=== PATIENT | female | born 1945 | race Caucasian/White ===

== ENCOUNTER 2019-04-05 17:22 | Emergency (ER) | payer MEDICARE, BC ==
[2019-04-05] MEDS ORDERED: Sodium Chloride 0.9% 10 ML Syringe FLUSH PRN (18:03)
--- NOTE | 2019-04-05 19:39 | EDM.PDOC ---
ED HPI GENERAL MEDICAL PROBLEM - General Chief Complaint: Syncope Stated Complaint: DIZZINESS Time Seen by Provider: 04/05/19 18:25 Source of Information: Reports: Patient History Limitations: Reports: No Limitations - History of Present Illness INITIAL COMMENTS - FREE TEXT/NARRATIVE: Patient presented to the ED because of recurrent near syncopal episode since yesterday with associated chest tightness. She also c/o chest tightness,denies any dyspnea,N/V or diaphoresis except for a mild headache. She has a h/o Afib/A flutter which was cardioverted by Dr Sánchez several years ago. - Related Data Allergies Allergy/AdvReac Type Severity Reaction Status Date / Time amoxicillin Allergy Burning Verified 04/05/19 19:20 Home Meds: Home Meds Apixaban [Eliquis] 5 mg PO BID 04/05/19 [History] Citalopram [Citalopram HBr] 40 mg PO DAILY 04/05/19 [History] Furosemide 60 mg PO DAILY 04/05/19 [History] Losartan [Cozaar] 125 mg PO DAILY 04/05/19 [History] Metoprolol Succinate [Toprol Xl] 100 mg PO DAILY 04/05/19 [History] Simvastatin 10 mg PO DAILY 04/05/19 [History] Past Medical History Cardiovascular History: Reports: Afib, Other (See Below) (AFLUTTER) ED ROS GENERAL - Review of Systems Review Of Systems: See Below Constitutional: Reports: No Symptoms HEENT: Reports: No Symptoms Respiratory: Reports: No Symptoms Cardiovascular: Reports: Chest Pain Endocrine: Reports: No Symptoms GI/Abdominal: Reports: No Symptoms : Reports: No Symptoms Musculoskeletal: Reports: No Symptoms Skin: Reports: No Symptoms Neurological: Reports: No Symptoms Psychiatric: Reports: No Symptoms Hematologic/Lymphatic: Reports: No Symptoms ED EXAM, GENERAL - Physical Exam Exam: See Below Exam Limited By: No Limitations General Appearance: Alert, No Apparent Distress Ears: Normal External Exam, Normal Canal, Hearing Grossly Normal Nose: Normal Inspection, Normal Mucosa Throat/Mouth: Normal Inspection, Normal Lips, Normal Oropharynx Head: Atraumatic, Normocephalic Neck: Normal Inspection, Non-Tender Respiratory/Chest: No Respiratory Distress, Lungs Clear, Normal Breath Sounds, No Accessory Muscle Use, Chest Non-Tender Cardiovascular: Normal Peripheral Pulses, No JVD, Bradycardia, Tachycardia, Irregularly Irregular GI/Abdominal: Normal Bowel Sounds, Soft, Non-Tender Back Exam: Normal Inspection, Full Range of Motion Extremities: Normal Inspection, Normal Range of Motion Neurological: Alert, Oriented, CN II-XII Intact Psychiatric: Normal Affect Course - Vital Signs Text/Narrative:: Labs/EKG/CXR was discussed with patient and her spouse and verbalized full understanding Will transfer to [place], she might need a pacemaker Last Recorded V/S: Last Vital Signs Temp 36.8 C 04/05/19 17:22 Pulse 29 L 04/05/19 17:22 Resp 16 04/05/19 17:22 BP 135/82 04/05/19 17:22 Pulse Ox 97 04/05/19 17:22 - Orders/Labs/Meds Orders: Active Orders 24 hr Category Date Time Status Chest 1V Frontal [CR] Stat Exams 04/05/19 18:03 Ordered Head wo Cont [CT] Stat Exams 04/05/19 18:04 Ordered Sodium Chloride 0.9% [Saline Flush] Med 04/05/19 18:03 Active 10 ml FLUSH ASDIRECTED PRN Saline Lock Insert [OM.PC] Routine Oth 04/05/19 18:03 Ordered Medication Orders Sodium Chloride (Saline Flush) 10 ml FLUSH ASDIRECTED PRN PRN Reason: Keep Vein Open Labs: Laboratory Tests 04/05/19 04/05/19 04/05/19 Range/Units 18:26 18:26 18:26 WBC 6.5 (4.5-12.0) X10-3/uL RBC 4.48 (3.23-5.20) x10(6)uL Hgb 13.5 (11.5-15.5) g/dL Hct 40.8 (30.0-51.3) % MCV 91.1 (80-96) fL MCH 30.2 (27.7-33.6) pg MCHC 33.1 (32.2-35.4) g/dL RDW 12.4 (11.5-15.5) % Plt Count 234 (125-369) X10(3)uL MPV 10.1 (7.4-10.4) fL Neut % (Auto) 61.4 (46-82) % Lymph % (Auto) 25.4 (13-37) % [place] % (Auto) 10.8 (4-12) % Eos % (Auto) 2 (1.0-5.0) % Baso % (Auto) 0 (0-2) % Neut # (Auto) 4.0 (1.6-8.3) # Lymph # (Auto) 1.7 (0.6-5.0) # [place] # (Auto) 0.7 (0.0-1.3) # Eos # (Auto) 0.1 (0.0-0.8) # Baso # (Auto) 0.0 (0.0-0.2) # Sodium 147 H (135-145) mmol/L Potassium 4.6 (3.5-5.3) mmol/L Chloride 106 (100-110) mmol/L Carbon Dioxide 29 (21-32) mmol/L BUN 43 H (7-18) mg/dL Creatinine 1.1 H (0.55-1.02) mg/dL Est Cr Clr Drug Dosing TNP Estimated GFR (MDRD) 49 L (>60) BUN/Creatinine Ratio 39.1 H (9-20) Glucose 106 (80-116) mg/dL Calcium 9.0 (8.6-10.2) mg/dL Magnesium 2.2 (1.8-2.5) mg/dL Total Bilirubin 1.3 (0.1-1.3) mg/dL AST 18 (5-25) IU/L ALT 21 (12-36) U/L Alkaline Phosphatase 70 (56-112) IU/L Troponin I < 0.017 L (<0.017-0.056) ng/mL Total Protein 7.5 (6.0-8.0) g/dL Albumin 3.7 (3.2-4.6) g/dL Globulin 3.8 g/dL Albumin/Globulin Ratio 1.0 Meds: Medications Generic Name Dose Route Start Last Admin Trade Name Freq PRN Reason Stop Dose Admin Sodium Chloride 10 ml 04/05/19 18:03 Saline Flush FLUSH ASDIRECTED PRN Keep Vein Open Departure - Departure Time of Disposition: 19:50 Disposition: DC/Tfer to Acute Hospital 02 Reason for Transfer *Q: Other (Higher Level of care-cardiology) Condition: Good Clinical Impression: Kelvin-tachy syndrome, 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 Referrals: Yvan Shrestha MD [Primary Care Provider] - Forms: ED Department Discharge Sepsis Event Note - Focused Exam Vital Signs: Vital Signs Temp Pulse Resp BP Pulse Ox 04/05/19 17:22 36.8 C 29 L 16 135/82 97 Date Exam was Performed: 04/05/19 Time Exam was Performed: 19:40 - My Orders Last 24 Hours: My Active Orders 04/05/19 18:03 Chest 1V Frontal [CR] Stat Sodium Chloride 0.9% [Saline Flush] 10 ml FLUSH ASDIRECTED PRN Saline Lock Insert [OM.PC] Routine 04/05/19 18:04 Head wo Cont [CT] Stat - Assessment/Plan Last 24 Hours: My Active Orders 04/05/19 18:03 Chest 1V Frontal [CR] Stat Sodium Chloride 0.9% [Saline Flush] 10 ml FLUSH ASDIRECTED PRN Saline Lock Insert [OM.PC] Routine 04/05/19 18:04 Head wo Cont [CT] Stat
== END 2019-04-05 20:05 ==
LOC: FB.ED 17:22
DX: R55 Syncope and collapse (principal); I49.5 Sick sinus syndrome; I48.91 Unspecified atrial fibrillation; Z88.1 Allergy status to other antibiotic agents; Z79.01 Long term (current) use of anticoagulants; Z79.899 Other long term (current) drug therapy
CPT/HCPCS: 36415; 70450; 71045; 80053; 83735; 84484; 85025; 93005; 99285; 99285-25

== ENCOUNTER 2021-05-13 08:10 | Day surgery (SDC) | payer MEDICARE, BC ==
[2021-05-13] MEDS ORDERED: Glycopyrrolate 0.2 MG/ML 5 ML MDV IV ONE (08:11)
[2021-05-13] MEDS ORDERED: Midazolam 1 MG/ML 2 ML SDV IV ONE (08:11)
[2021-05-13] MEDS ORDERED: Propofol 200 MG/20 ML SDV IV ONE (08:11)
[2021-05-13] MEDS ORDERED: Lactated Ringers 1,000 ML IV SCH (08:15)
[2021-05-13] MEDS ORDERED: Sodium Chloride 0.9% 10 ML Syringe FLUSH PRN (08:15)
== END 2021-05-13 12:14 | disposition home or self-care (01) ==
LOC: FB.SDS 08:10
PROVIDERS: ATTEND Surgery
DX: D12.0 Benign neoplasm of cecum (principal); D12.2 Benign neoplasm of ascending colon; D12.8 Benign neoplasm of rectum; E66.01 Morbid (severe) obesity due to excess calories; K57.30 Diverticulosis of large intestine without perforation or abscess without bleeding; K58.9 Irritable bowel syndrome, unspecified; D64.9 Anemia, unspecified; G47.33 Obstructive sleep apnea (adult) (pediatric); I50.22 Chronic systolic (congestive) heart failure; I11.0 Hypertensive heart disease with heart failure; Z98.890 Other specified postprocedural states; Z79.899 Other long term (current) drug therapy; Z88.1 Allergy status to other antibiotic agents; Z90.49 Acquired absence of other specified parts of digestive tract; Z68.42 Body mass index [BMI] 45.0-49.9, adult
CPT/HCPCS: 00812-QZ; 82947; 88305; J2250; J2704; J3490; J7120

== ENCOUNTER 2022-01-25 15:51 | Emergency (ER) | payer MEDICARE, BC ==
[2022-01-25] MEDS ORDERED: Albuterol/Ipratropium 3.0-0.5 MG/3 ML Neb Soln INH ONE (15:52)
[2022-01-25] MEDS ORDERED: Albuterol 0.083% 2.5 MG/3 ML Neb Soln NEB ONE (16:22)
[2022-01-25] MEDS ORDERED: Ipratropium 0.02% 0.5 MG/2.5 ML Neb Soln NEB ONE (16:52)
[2022-01-25] MEDS ORDERED: predniSONE 20 MG Tab PO ONE (17:31)
== END 2022-01-25 17:50 | disposition home or self-care (01) ==
LOC: FB.ED 15:51
DX: J98.01 Acute bronchospasm (principal); I48.91 Unspecified atrial fibrillation; I11.0 Hypertensive heart disease with heart failure; I50.9 Heart failure, unspecified; E78.00 Pure hypercholesterolemia, unspecified; E66.9 Obesity, unspecified; Z68.42 Body mass index [BMI] 45.0-49.9, adult; Z88.0 Allergy status to penicillin; Z79.01 Long term (current) use of anticoagulants; Z79.899 Other long term (current) drug therapy; Z79.84 Long term (current) use of oral hypoglycemic drugs
CPT/HCPCS: 94640; 99284; J7512; J7620

== ENCOUNTER 2025-01-30 07:47 | Day surgery (SDC) | payer MEDICARE, BC ==
[~2025-01-30 07:47] MED LIST: Sodium Chloride 0.9% 10 ML Syringe FLUSH PRN
[2025-01-30] MEDS ORDERED: Ketamine 500 mg/10 ML MDV IV ONE (07:48)
[2025-01-30] MEDS ORDERED: Midazolam 1 MG/ML 2 ML SDV IV ONE (07:48)
[2025-01-30] MEDS ORDERED: Propofol 200 MG/20 ML SDV IV ONE (07:48)
[2025-01-30] MEDS: Lactated Ringers 1,000 ML IV SCH (08:38)
== END 2025-01-30 12:06 | disposition home or self-care (01) ==
LOC: FB.SDS 07:47
PROVIDERS: ATTEND Surgery
DX: D12.2 Benign neoplasm of ascending colon (principal); K63.5 Polyp of colon; D12.6 Benign neoplasm of colon, unspecified; K57.50 Diverticulosis of both small and large intestine without perforation or abscess without bleeding; I11.0 Hypertensive heart disease with heart failure; I50.22 Chronic systolic (congestive) heart failure; F32.A Depression, unspecified; E78.5 Hyperlipidemia, unspecified; I48.91 Unspecified atrial fibrillation; Z88.0 Allergy status to penicillin; Z86.0101 Personal history of adenomatous and serrated colon polyps; Z79.01 Long term (current) use of anticoagulants; Z79.899 Other long term (current) drug therapy
CPT/HCPCS: 00811; 45384; 45385; 88305; 99100; A9270; J2003; J2250; J2704; J3490; J7120